=== PATIENT | male | born 1945 | race Caucasian/White ===

== ENCOUNTER 2017-08-01 16:23 | Emergency (ER) | payer OTHER, MEDICARE ==
[~2017-08-01] VITALS: Ht 165.1 cm; Wt 86.4 kg
[~2017-08-01 16:23] MED LIST: ANTIVERT25 MG PO; CIPRODEX OTIC7.5 ML LEFT EAR; COREG3.125 M1 PO; CRESTOR20 MG PO; ECOTRIN325 MG PO; GLIMEPIRIDE1 MG PO; LASIX20 MG PO; LOPERAMIDE2 M1 PO; LOSARTAN POTASS25 MG PO; METFORMIN HCL500 M1 PO; MICRO-K10 ME1 PO; NAPROSYN500 MG PO; NEXIUM40 MG PO; PANTOPRAZOLE SO40 MG PO; PLAVIX75 MG PO; PRAVASTATIN SOD80 MG; VALIUM2 MG PO
[2017-08-01 17:32] LABS: MCH 30.2 PG (29.0-34.0); MEAN PLAT.VOLUME 9.9 uM^3 (9.0-12.4); PLATELET COUNT 193 K/uL (156-360); RBC DIS.WIDTH-CV 12.3 % (11.8-14.6); RBC DIS.WIDTH-SD 40.5 % (39-53); RED BLOOD COUNT 4.83 M/uL (4.00-5.50); WHITE BLOOD COUNT 5.5 K/uL (4.1-10.2)
[2017-08-01 17:44] LABS: CHLORIDE 109 mEq/L (99-109); SODIUM 140 mEq/L (136-147)
[2017-08-01 17:45] LABS: GLUCOSE 124 mg/dL (70-99)
[2017-08-01 17:47] LABS: ANION GAP 8 MEQ/L (2-14)
[2017-08-01 17:49] LABS: GFR ESTIMATE (CALCULATED) > 59 mL/min/
[2017-08-01 17:50] LABS: UREA NITROGEN (BUN) 16 mg/dL (9-23)
[2017-08-01] MEDS ORDERED: PREDNISONE20 MG PO (21:11)
[2017-08-01 21:41] VITALS: BP 170/65
== END 2017-08-01 21:42 | disposition home or self-care (01) ==
LOC: EME 16:23
DX: J40 Bronchitis, not specified as acute or chronic (principal); R19.7 Diarrhea, unspecified; R00.1 Bradycardia, unspecified; I10 Essential (primary) hypertension; E78.5 Hyperlipidemia, unspecified; E11.9 Type 2 diabetes mellitus without complications; Z79.84 Long term (current) use of oral hypoglycemic drugs; Z95.1 Presence of aortocoronary bypass graft; Z79.02 Long term (current) use of antithrombotics/antiplatelets; Z79.82 Long term (current) use of aspirin; Z87.891 Personal history of nicotine dependence
CPT/HCPCS: 71020; 80048; 85027; 87493; 93005; 94640; 99281; 99285; J7512

== ENCOUNTER 2017-11-12 18:59 | Inpatient (IN) | payer OTHER, MEDICARE ==
[~2017-11-12] VITALS: Ht 165.1 cm; Wt 89.8 kg
[~2017-11-12 18:59] MED LIST changes: +ADULT ASPIRIN R81 MG PO; +COZAAR50 MG PO; -CRESTOR20 MG PO; -ECOTRIN325 MG PO; +LIPITOR40 MG PO; -LOSARTAN POTASS25 MG PO; +PREDNISONE20 MG PO
[2017-11-12 19:28] LABS: HEMATOCRIT 42.3 % (38.0-50.0); HEMOGLOBIN 14.2 G/DL (12.5-16.6); MCH 30.3 PG (29.0-34.0); MCHC 33.6 G/DL (30.0-36.0); MCV 90.4 FL (86-99); PLATELET COUNT 201 K/uL (156-360); RBC DIS.WIDTH-CV 13.6 % (11.8-14.6); RBC DIS.WIDTH-SD 43.9 % (39-53); RED BLOOD COUNT 4.68 M/uL (4.00-5.50); WHITE BLOOD COUNT 7.4 K/uL (4.1-10.2)
[2017-11-12 19:36] LABS: CHLORIDE 110 mEq/L (99-109); POTASSIUM 3.9 mEq/L (3.7-5.4); SODIUM 142 mEq/L (136-147)
[2017-11-12 19:38] LABS: GLUCOSE 189 mg/dL (70-99)
[2017-11-12 19:42] LABS: CREATININE 0.8 mg/dL (0.6-1.3); GFR ESTIMATE (CALCULATED) > 59 mL/min/ (58.99-99999); UREA NITROGEN (BUN) 16 mg/dL (9-23)
[2017-11-12 19:48] LABS: TROP-I INTERPRETATION NEGATIVE; TROPONIN-I 0.02 ng/mL (0.0-0.30)
[2017-11-12] MEDS ORDERED: NEXIUM40 MG PO (20:16)
[2017-11-12] MEDS ORDERED: VITAMIN E400 UNIT PO (20:16)
[2017-11-13 01:01] LABS: TROP-I INTERPRETATION NEGATIVE; TROPONIN-I 0.03 ng/mL (0.0-0.30)
[2017-11-13 03:57] VITALS: BP 119/59
[2017-11-13 07:26] LABS: TROP-I INTERPRETATION NEGATIVE; TROPONIN-I 0.03 ng/mL (0.0-0.30)
[2017-11-13 07:28] LABS: CHLORIDE 108 MEQ/L (99-109); CREATININE 0.8 MG/DL (0.6-1.3); GFR ESTIMATE (CALCULATED) > 59 mL/min/ (58.99-99999); PHOSPHORUS 4.2 mg/dL (2.5-4.9); POTASSIUM 4.1 MEQ/L (3.7-5.4); SODIUM 146 MEQ/L (136-147); UREA NITROGEN (BUN) 16 mg/dL (9-23)
[2017-11-13 07:30] LABS: GLUCOSE 100 mg/dL (70-99)
[2017-11-13 07:46] VITALS: BP 126/59
[2017-11-13 07:48] LABS: APPEARANCE CLEAR ((CLEAR)); BILIRUBIN NEGATIVE; BLOOD NEGATIVE; COLOR YELLOW ((YELLOW)); GLUCOSE (STRIP) NEGATIVE; KETONES NEGATIVE; LEUKOCYTES NEGATIVE; NITRITE NEGATIVE; PROTEIN (STRIP) NEGATIVE; SPECIFIC GRAVITY 1.011 (1.000-1.030); UCUL ADDED? NO; UROBILINOGEN 0.2 MG/DL (0.2-1.0)
[2017-11-13 12:07] VITALS: BP 178/82
[2017-11-13 15:34] LABS: TROP-I INTERPRETATION NEGATIVE; TROPONIN-I 0.01 ng/mL (0.0-0.30)
[2017-11-13 15:47] VITALS: BP 161/77
[2017-11-13 19:24] VITALS: BP 98/53
[2017-11-14 00:14] VITALS: BP 100/62
[2017-11-14 03:42] VITALS: BP 122/58
[2017-11-14 07:07] LABS: TROP-I INTERPRETATION NEGATIVE; TROPONIN-I 0.02 ng/mL (0.0-0.30)
[2017-11-14 07:16] LABS: CHLORIDE 104 MEQ/L (99-109); CREATININE 1.2 MG/DL (0.6-1.3); GFR ESTIMATE (CALCULATED) > 59 mL/min/ (58.99-99999); GLUCOSE 130 mg/dL (70-99); POTASSIUM 4.3 MEQ/L (3.7-5.4); SODIUM 140 MEQ/L (136-147); UREA NITROGEN (BUN) 24 mg/dL (9-23)
[2017-11-14 07:34] VITALS: BP 102/59
[2017-11-14 11:38] VITALS: BP 107/51
[2017-11-14] MEDS ORDERED: LASIX20 MG PO (14:14)
[2017-11-14] MEDS ORDERED: IMDUR60 MG PO (15:43)
== END 2017-11-14 16:49 | disposition home health service (06) | DRG 293 ==
LOC: EME 18:59 → 5SOUTH 21:57 → EDOF 21:57 → ENRESERV 22:00 → 5SOUTH 23:03 → ENPENDDIS 11-14 14:21 → 5SOUTH 11-14 16:49
PROVIDERS: Hospitalist; Internal Medicine Cardiovascular Disease; Student in an Organized Health Care Education/Training Program
DX: I11.0 Hypertensive heart disease with heart failure (principal); I50.23 Acute on chronic systolic (congestive) heart failure; I25.5 Ischemic cardiomyopathy; I25.10 Atherosclerotic heart disease of native coronary artery without angina pectoris; E78.5 Hyperlipidemia, unspecified; E11.9 Type 2 diabetes mellitus without complications; K21.9 Gastro-esophageal reflux disease without esophagitis; G47.33 Obstructive sleep apnea (adult) (pediatric); E66.9 Obesity, unspecified; Z68.32 Body mass index [BMI] 32.0-32.9, adult; I25.2 Old myocardial infarction; Z95.5 Presence of coronary angioplasty implant and graft; Z95.1 Presence of aortocoronary bypass graft; Z87.891 Personal history of nicotine dependence; Z79.82 Long term (current) use of aspirin; Z79.02 Long term (current) use of antithrombotics/antiplatelets; Z79.84 Long term (current) use of oral hypoglycemic drugs
CPT/HCPCS: 71046; 80048; 81003; 82948; 83735; 84100; 84484; 85027; 93005; 93306; 99281; 99285; J1650; J1940

== ENCOUNTER 2018-04-16 11:42 | Emergency (ER) | payer OTHER, MEDICARE ==
[~2018-04-16] VITALS: Ht 165.1 cm; Wt 92.8 kg
[~2018-04-16 11:42] MED LIST changes: +IMDUR60 MG PO; +VITAMIN E400 UNIT PO
[2018-04-16 11:50] VITALS: BP 00/00
[2018-04-16] MEDS ORDERED: IMDUR60 MG PO (20:09)
[2018-04-16] MEDS ORDERED: FUROSEMIDE40 MG PO (20:11)
[2018-04-16] MEDS ORDERED: KLOR-CON 1010 ME1 PO (20:11)
[2018-04-16] MEDS ORDERED: ROSUVASTATIN CA20 MG PO (20:11)
[2018-04-16] MEDS ORDERED: BIOFREEZE TP (20:12)
[2018-04-17] MEDS ORDERED: CYCLOBENZAPRINE5 MG PO (15:25)
[2018-04-17] MEDS ORDERED: NITROSTAT0.4 MG SL (15:26)
[2018-04-17] MEDS ORDERED: NIFEDIPINE20 MG PO (15:26)
== END 2018-04-16 13:30 | disposition left against medical advice (07) ==
LOC: EME 11:42
DX: M54.9 Dorsalgia, unspecified (principal); R07.81 Pleurodynia; Z53.21 Procedure and treatment not carried out due to patient leaving prior to being seen by health care provider

== ENCOUNTER 2018-04-16 15:09 | Observation (INO) | payer OTHER, MEDICARE ==
[~2018-04-16] VITALS: Ht 165.1 cm; Wt 93.9 kg
[2018-04-16 16:56] LABS: HEMATOCRIT 38.2 % (38.0-50.0); HEMOGLOBIN 13.2 G/DL (12.5-16.6); MCH 30.8 PG (29.0-34.0); MCHC 34.6 G/DL (30.0-36.0); MCV 89.3 FL (86-99); PLATELET COUNT 166 K/uL (156-360); RBC DIS.WIDTH-CV 12.9 % (11.8-14.6); RED BLOOD COUNT 4.28 M/uL (4.00-5.50); WHITE BLOOD COUNT 6.3 K/uL (4.1-10.2)
[2018-04-16 17:11] LABS: CHLORIDE 105 mEq/L (99-109); SODIUM 141 mEq/L (136-147)
[2018-04-16 17:12] LABS: GLUCOSE 114 mg/dL (70-99)
[2018-04-16 17:16] LABS: CREATININE 0.9 mg/dL (0.6-1.3); GFR ESTIMATE (CALCULATED) > 59 mL/min/ (58.99-99999)
[2018-04-16 17:17] LABS: UREA NITROGEN (BUN) 18 mg/dL (9-23)
[2018-04-16 17:21] LABS: TROP-I INTERPRETATION NEGATIVE; TROPONIN-I 0.01 ng/mL (0.0-0.30)
[2018-04-16 17:29] LABS: ALBUMIN 3.9 g/dL (3.2-4.8)
[2018-04-16 17:32] LABS: TOTAL PROTEIN 6.3 g/dL (6.4-8.3)
[2018-04-16 17:34] LABS: TOTAL BILIRUBIN 0.5 mg/dL (0.0-1.0)
[2018-04-16 17:35] LABS: ALKALINE PHOSPHATASE 85 IU/L (3-129)
[2018-04-16 17:37] LABS: AST (GOT) 23 IU/L (2-34); DIRECT BILIRUBIN 0.2 mg/dL (0.0-0.3)
[2018-04-16 17:38] LABS: ALT (GPT) 25 IU/L (3-49); LIPASE 47 U/L (1.0-51.0)
[2018-04-16 18:57] LABS: APPEARANCE CLEAR ((CLEAR)); BILIRUBIN NEGATIVE; BLOOD NEGATIVE; COLOR YELLOW ((YELLOW)); GLUCOSE (STRIP) NEGATIVE; KETONES NEGATIVE; LEUKOCYTES NEGATIVE; NITRITE NEGATIVE; PROTEIN (STRIP) 30; SPECIFIC GRAVITY 1.038 (1.000-1.030); UCUL ADDED? NO; UROBILINOGEN 0.2 MG/DL (0.2-1.0)
[2018-04-16] MEDS ORDERED: IMDUR60 MG PO (20:09)
[2018-04-16] MEDS ORDERED: KLOR-CON 1010 ME1 PO (20:11)
[2018-04-16] MEDS ORDERED: ROSUVASTATIN CA20 MG PO (20:11)
[2018-04-16] MEDS ORDERED: FUROSEMIDE40 MG PO (20:11)
[2018-04-16] MEDS ORDERED: BIOFREEZE TP (20:12)
[2018-04-16 22:18] VITALS: BP 196/82
[2018-04-16 23:29] LABS: TROP-I INTERPRETATION NEGATIVE; TROPONIN-I 0.02 ng/mL (0.0-0.30)
[2018-04-16 23:39] VITALS: BP 128/68
[2018-04-17 03:59] VITALS: BP 174/84
[2018-04-17 06:59] LABS: CHLORIDE 106 MEQ/L (99-109); CREATININE 0.9 MG/DL (0.6-1.3); GFR ESTIMATE (CALCULATED) > 59 mL/min/ (58.99-99999); GLUCOSE 125 mg/dL (70-99); POTASSIUM 4.1 MEQ/L (3.7-5.4); SODIUM 140 MEQ/L (136-147); UREA NITROGEN (BUN) 16 mg/dL (9-23)
[2018-04-17 07:35] LABS: TROP-I INTERPRETATION NEGATIVE; TROPONIN-I 0.04 ng/mL (0.0-0.30)
[2018-04-17 08:13] VITALS: BP 131/65
[2018-04-17 11:58] VITALS: BP 179/77
[2018-04-17 14:21] VITALS: BP 150/66
[2018-04-17] MEDS ORDERED: CYCLOBENZAPRINE5 MG PO (15:25)
[2018-04-17] MEDS ORDERED: NIFEDIPINE20 MG PO (15:26)
[2018-04-17] MEDS ORDERED: NITROSTAT0.4 MG SL (15:26)
[2018-04-17 15:41] VITALS: BP 120/59
== END 2018-04-17 16:15 | disposition home or self-care (01) ==
LOC: EME 15:09 → EDOF 20:58 → 4SOUTH 20:58 → CANRESERV 21:25 → ENRESERV 21:26 → 4SOUTH 22:14
PROVIDERS: Emergency Medicine; Hospitalist; Physician Assistant
DX: M54.5 Low back pain (principal); M62.838 Other muscle spasm; I25.10 Atherosclerotic heart disease of native coronary artery without angina pectoris; Z95.1 Presence of aortocoronary bypass graft; Z95.5 Presence of coronary angioplasty implant and graft; I25.5 Ischemic cardiomyopathy; R94.31 Abnormal electrocardiogram [ECG] [EKG]; E11.9 Type 2 diabetes mellitus without complications; I11.0 Hypertensive heart disease with heart failure; I50.9 Heart failure, unspecified; E78.5 Hyperlipidemia, unspecified; I25.2 Old myocardial infarction; I70.1 Atherosclerosis of renal artery; I70.0 Atherosclerosis of aorta; G47.33 Obstructive sleep apnea (adult) (pediatric); K21.9 Gastro-esophageal reflux disease without esophagitis; M10.9 Gout, unspecified; R06.02 Shortness of breath; Z90.49 Acquired absence of other specified parts of digestive tract; Z82.49 Family history of ischemic heart disease and other diseases of the circulatory system; Z80.7 Family history of other malignant neoplasms of lymphoid, hematopoietic and related tissues; Z80.8 Family history of malignant neoplasm of other organs or systems; Z80.1 Family history of malignant neoplasm of trachea, bronchus and lung; Z87.891 Personal history of nicotine dependence; Z88.8 Allergy status to other drugs, medicaments and biological substances; Z79.82 Long term (current) use of aspirin; Z79.02 Long term (current) use of antithrombotics/antiplatelets
CPT/HCPCS: 71046; 71275; 72132; 74175; 74177; 80048; 80076; 81003; 82948; 83690; 84484; 85027; 87493; 93005; 94660; G0378; J1644; J3010; J7040